=== PATIENT | male | born 1970 | race Caucasian/White ===

== ENCOUNTER → 2022-09-23 | Day surgery (SDC) | payer BC ==
[~2022-09-23] MED LIST: Ketamine 200 MG/20 ML MDV ONE; Lactated Ringers 1,000 ML IV SCH; fentaNYL 50 MCG/ML SDV ONE
[2022-09-23 09:30] VITALS: BP 118/68; PULSE 80
== END ==
LOC: CC.SDS 07:27
PROVIDERS: ATTEND Surgery
DX: Z12.11 Encounter for screening for malignant neoplasm of colon (principal); E11.40 Type 2 diabetes mellitus with diabetic neuropathy, unspecified; E11.621 Type 2 diabetes mellitus with foot ulcer; E11.3293 Type 2 diabetes mellitus with mild nonproliferative diabetic retinopathy without macular edema, bilateral; E11.610 Type 2 diabetes mellitus with diabetic neuropathic arthropathy; F41.9 Anxiety disorder, unspecified; F32.A Depression, unspecified; L97.509 Non-pressure chronic ulcer of other part of unspecified foot with unspecified severity; K21.9 Gastro-esophageal reflux disease without esophagitis; E78.5 Hyperlipidemia, unspecified; I10 Essential (primary) hypertension; G47.30 Sleep apnea, unspecified; Z79.899 Other long term (current) drug therapy; Z79.82 Long term (current) use of aspirin; Z98.890 Other specified postprocedural states
CPT/HCPCS: 00812; J3010; J3490; J7120

== ENCOUNTER 2023-01-27 22:40 | Observation (INO) | payer BC ==
[2023-01-27] MEDS ORDERED: VANCOmycin 2 GM/400 ML 2 GM in Premix Bag 1 BAG IV ONE (23:28)
[2023-01-27 23:42] LABS: ALANINE AMINOTRANSFERASE,ALT 18 U/L (12-78); ALBUMIN 3.1 g/dL (3.4-5.0); ALKALINE PHOSPHATASE 88 U/L (46-116); ASPARTATE AMNIOTRANSFERASE,AST 13 U/L (15-37); BILIRUBIN TOTAL 0.4 mg/dL (0.0-1.0); BLOOD UREA NITROGEN,BUN 19 mg/dL (7-18); CALCIUM 8.8 mg/dL (8.4-10.1); CARBON DIOXIDE,CO2 32 mmol/L (21-32); CHLORIDE,CL 104 mEq/L (98-106); CREATININE 1.1 mg/dL (0.7-1.3); GLUCOSE RANDOM 243 mg/dL (75-99); POTASSIUM,K 3.8 mEq/L (3.5-5.0); PROTEIN TOTAL,TP 6.9 g/dL (6.4-8.2); SODIUM,NA 142 mEq/L (136-145)
[2023-01-27 23:43] LABS: ESTIMATED GFR 82 mL/min (>=60)
[2023-01-28 00:19] LABS: BASOPHILS PERCENT AUTO 0.1 % (0-1); EOSINOPHILS PERCENT AUTO 1.5 % (0-6); HEMATOCRIT 38.9 % (42.0-52.0); HEMOGLOBIN 12.4 g/dL (14.0-18.0); LYMPHOCYTES PERCENT AUTO 23.7 % (24-44); MEAN CORPUSCULAR HEMOGLOBIN 26.4 pg (27.0-32.0); MEAN CORPUSCULAR HGB CONC 31.9 g/dL (32.0-36.0); MEAN CORPUSCULAR VOLUME 82.8 fL (83.0-97.0); MONOCYTES PERCENT AUTO 7.6 % (0-10); NEUTROPHILS ABSOLUTE AUTO 5.93 x10^3/uL (1.80-8.00); NEUTROPHILS PERCENT AUTO 67.1 % (41-71); PLATELET COUNT,PLT 349 10^3/uL (150-400); WHITE BLOOD CELL COUNT,WBC 8.8 10^3/uL (4.0-11.0)
[2023-01-28 00:20] LABS: BASOPHILS ABSOLUTE AUTO 0.01 10^3/uL (0.00-0.50); EOSINOPHILS ABSOLUTE AUTO 0.13 10^3/uL (0.00-1.50); LYMPHOCYTES ABSOLUTE AUTO 2.09 10^3/uL (0.60-5.00); MONOCYTES ABSOLUTE AUTO 0.67 10^3/uL (0.00-1.50)
[2023-01-28] MEDS ORDERED: Cyclobenzaprine 10 MG Tab PO PRN (00:46)
[2023-01-28] MEDS ORDERED: oxyCODONE 5 MG Tab PO PRN (00:46)
[2023-01-28] MEDS ORDERED: Non-Formulary Medication 1 Each (Tirzepatide [Mounjaro] 5 MG/0.5 ML Pen.Injctr) SQ SCH (00:46)
[2023-01-28] MEDS: Gabapentin 300 MG Cap PO SCH ×3 (01:19→09:13)
[2023-01-28] MEDS ORDERED: INSULIN ASPART PROTAMINE SQ SCH (07:00)
[2023-01-28] MEDS ORDERED: [UNRECOGNIZED DRUG - OTHER] SQ SCH (07:00)
[2023-01-28] MEDS ORDERED: busPIRone 5 MG Tab PO SCH ×2 (07:00→20:00)
[2023-01-28] MEDS ORDERED: INSULIN ASPART SQ SCH (07:00)
[2023-01-28] MEDS ORDERED: buPROPion 150 MG Tab.ER PO SCH (08:00)
[2023-01-28] MEDS ORDERED: amLODIPine 10 MG Tab PO SCH (08:00)
[2023-01-28] MEDS: Aspirin 81 MG Tab.EC PO SCH ×2 (08:00→08:33)
[2023-01-28] MEDS ORDERED: Insulin Glarg,Human.Rec.Analog 100 Unit/ML SUBCUT SCH (08:00)
[2023-01-28] MEDS ORDERED: Non-Formulary Medication 1 Each (Empagliflozin [Jardiance] 25 MG Tablet) PO SCH (08:00)
[2023-01-28] MEDS ORDERED: Lisinopril 20 MG Tab PO SCH (08:00)
[2023-01-28] MEDS ORDERED: Pantoprazole 40 MG Tab.CR PO SCH (08:00)
[2023-01-28] MEDS ORDERED: Hydrochlorothiazide 25 MG Tab PO SCH (08:00)
[2023-01-28] MEDS ORDERED: atorvaSTATin 20 MG Tab PO SCH (08:00)
[2023-01-28 08:03] LABS: HEMOGLOBIN 11.8 g/dL (14.0-18.0); RED BLOOD CELL COUNT 4.44 x10^6/uL (4.50-6.00)
[2023-01-28 08:04] LABS: BASOPHILS ABSOLUTE AUTO 0.01 10^3/uL (0.00-0.50); BASOPHILS PERCENT AUTO 0.2 % (0-1); EOSINOPHILS ABSOLUTE AUTO 0.18 10^3/uL (0.00-1.50); HEMATOCRIT 36.5 % (42.0-52.0); LYMPHOCYTES ABSOLUTE AUTO 2.02 10^3/uL (0.60-5.00); LYMPHOCYTES PERCENT AUTO 33.4 % (24-44); MEAN CORPUSCULAR HEMOGLOBIN 26.6 pg (27.0-32.0); MEAN CORPUSCULAR HGB CONC 32.3 g/dL (32.0-36.0); MEAN CORPUSCULAR VOLUME 82.2 fL (83.0-97.0); MONOCYTES ABSOLUTE AUTO 0.58 10^3/uL (0.00-1.50); MONOCYTES PERCENT AUTO 9.6 % (0-10); NEUTROPHILS ABSOLUTE AUTO 3.25 x10^3/uL (1.80-8.00); NEUTROPHILS PERCENT AUTO 53.8 % (41-71); PLATELET COUNT,PLT 300 10^3/uL (150-400)
[2023-01-28 08:12] VITALS: BP 130/83
[2023-01-28 08:13] LABS: CALCIUM 8.3 mg/dL (8.4-10.1); CREATININE 0.8 mg/dL (0.7-1.3); EST CRCL DRUG DOSING (CG) 124.84 mL/min; POTASSIUM,K 3.2 mEq/L (3.5-5.0)
[2023-01-28 09:19] VITALS: PULSE 68
[2023-01-28] MEDS ORDERED: Potassium Chloride 10 MEQ Tab.ER PO ONE (09:56)
[2023-01-28] MEDS ORDERED: Insulin Lispro 100 Units/ML 3 ML Vial SUBCUT SCH (12:00)
[2023-01-28] MEDS ORDERED: VANCOmycin 1.5 GM/300 ML 1.5 GM in Premix Bag 1 BAG IV SCH (12:00)
== END 2023-01-28 10:10 ==
LOC: CC.ED 22:40 → CC.MS 01-28 00:13 → UNDOADMOB 01-28 00:35
PROVIDERS: ADMIT Nurse Practitioner; ATTEND Nurse Practitioner
DX: E11.69 Type 2 diabetes mellitus with other specified complication (principal); M86.171 Other acute osteomyelitis, right ankle and foot; E11.621 Type 2 diabetes mellitus with foot ulcer; L97.416 Non-pressure chronic ulcer of right heel and midfoot with bone involvement without evidence of necrosis; Z88.5 Allergy status to narcotic agent; Z88.8 Allergy status to other drugs, medicaments and biological substances; Z79.4 Long term (current) use of insulin; Z79.82 Long term (current) use of aspirin; Z79.899 Other long term (current) drug therapy
CPT/HCPCS: 36415; 73630-RT; 80048; 80053; 80202; 83605; 83735; 85025; 87040; 96365; 96366; 99284-25; A9270-GY; G0378; J3370

== ENCOUNTER 2024-09-26 10:39 | Emergency (ER) | payer BC ==
[2024-09-26 11:23] LABS: BASOPHILS ABSOLUTE AUTO 0.03 10^3/uL (0.00-0.50); BASOPHILS PERCENT AUTO 0.4 % (0-1); EOSINOPHILS ABSOLUTE AUTO 0.08 10^3/uL (0.00-1.50); EOSINOPHILS PERCENT AUTO 1.1 % (0-6); HEMATOCRIT 45.4 % (42.0-52.0); HEMOGLOBIN 15.3 g/dL (14.0-18.0); IMMATURE GRAN ABSOLUTE AUTO 0.01 10^3/uL (0.00-0.49); IMMATURE GRAN PERCENT AUTO 0.1 % (0.0-4.9); LYMPHOCYTES ABSOLUTE AUTO 1.52 10^3/uL (0.60-5.00); LYMPHOCYTES PERCENT AUTO 21.4 % (24-44); MEAN CORPUSCULAR HEMOGLOBIN 28.4 pg (27.0-32.0); MEAN CORPUSCULAR HGB CONC 33.7 g/dL (32.0-36.0); MEAN CORPUSCULAR VOLUME 84.4 fL (83.0-97.0); MONOCYTES PERCENT AUTO 8.5 % (0-10); NEUTROPHILS ABSOLUTE AUTO 4.86 x10^3/uL (1.80-8.00); NEUTROPHILS PERCENT AUTO 68.5 % (41-71); PLATELET COUNT,PLT 201 10^3/uL (150-400); RED BLOOD CELL COUNT 5.38 x10^6/uL (4.50-6.00); WHITE BLOOD CELL COUNT,WBC 7.1 10^3/uL (4.0-11.0)
[2024-09-26 11:24] VITALS: BP 167/89; PULSE 94
[2024-09-26 11:31] LABS: ALANINE AMINOTRANSFERASE,ALT 17 U/L (12-78); ALBUMIN 3.5 g/dL (3.4-5.0); ALKALINE PHOSPHATASE 93 U/L (46-116); ASPARTATE AMNIOTRANSFERASE,AST 12 U/L (15-37); BILIRUBIN TOTAL 0.8 mg/dL (0.0-1.0); BLOOD UREA NITROGEN,BUN 11 mg/dL (7-18); CALCIUM 8.4 mg/dL (8.4-10.1); CARBON DIOXIDE,CO2 32 mmol/L (21-32); CHLORIDE,CL 102 mEq/L (98-106); CREATININE 1.1 mg/dL (0.7-1.3); EST CRCL DRUG DOSING (CG) 88.78 mL/min; GLUCOSE RANDOM 162 mg/dL (75-99); POTASSIUM,K 3.9 mEq/L (3.5-5.0); PROTEIN TOTAL,TP 6.7 g/dL (6.4-8.2); SODIUM,NA 143 mEq/L (136-145)
[2024-09-26 11:42] LABS: C-REACTIVE PROTEIN < 0.50 mg/dL (<=0.50); ESTIMATED GFR 81 mL/min (>=60)
[2024-09-26] MEDS: metroNIDAZOLE 500 MG Tab PO ONE (12:25)
[2024-09-26] MEDS: Cefepime 2 GM Vial IVPUSH SCH (12:25)
== END 2024-09-26 12:45 | disposition home or self-care (01) ==
LOC: CC.ED 10:39
DX: E11.621 Type 2 diabetes mellitus with foot ulcer (principal); L97.516 Non-pressure chronic ulcer of other part of right foot with bone involvement without evidence of necrosis; I10 Essential (primary) hypertension; E78.00 Pure hypercholesterolemia, unspecified; K21.9 Gastro-esophageal reflux disease without esophagitis; E11.42 Type 2 diabetes mellitus with diabetic polyneuropathy; Z88.5 Allergy status to narcotic agent; Z88.8 Allergy status to other drugs, medicaments and biological substances; Z79.4 Long term (current) use of insulin; Z79.82 Long term (current) use of aspirin; Z79.899 Other long term (current) drug therapy
CPT/HCPCS: 36415; 80053; 85025; 86140; 87070; 87077; 87186; 96374; 99283; A6212; A9270; J0692